=== PATIENT | female | born 1975 | race Caucasian/White ===

== ENCOUNTER 2018-12-18 14:19 | Observation (INO) ==
--- NOTE | 2018-12-18 15:34 | Progress Note ---
Subjective Date: 12/18/18 Time: 15:26 Principal diagnosis: chest pain Interval history: Office note from today: Pt here for follow up after ER visit. CAD is present. Hx of CABG. On ASA. PAD is present. She has been having chest pain about 10 times a day. It lasts around 5 minutes each time. It does radiate to her left arm. Sob with exertion. BP is acceptable today. Weight is up 1 pound LDL goal is < 55, LDL is 100. EKG is NSR, rate is 83 bpm. Due to her unstable angina would like to admit her to the hospital and get her set up for a LHC tomorrow. RTC after hospital stay. This document was scribed by me, Iliana Quinones RN for Dr. Jon Abreu MD Exam Vital signs and Labs for Last 24 Hours: Temp Pulse Resp BP Pulse Ox 97.5 F L 78 18 137/89 98 12/18/18 14:43 12/18/18 14:43 12/18/18 14:43 12/18/18 14:43 12/18/18 14:43 I & O for Last 24 hours: Intake & Output 12/16/18 12/17/18 12/18/18 12/19/18 11:59 11:59 11:59 11:59 Weight 175 lb 1 oz - *Routine Neck Exam Present: supple. Absent: JVD, carotid bruit - *Routine Respiratory Exam Present: CTA bilaterally. Absent: accessory muscle use, rales, rhonchi, wheezes - *Routine Cardiovascular Exam Present: RRR. Absent: murmur, gallop, rubs - *Routine Abdominal Exam Present: soft. Absent: tenderness, distended, guarding - *Routine Extremities Exam Absent: edema, calf tenderness - *Routine Neurological Exam Present: alert, oriented X3, moving all extremities Progress Note: A&P (1) Angina pectoris Status: Chronic Current Visit: No (2) Carotid artery stenosis Status: Chronic Current Visit: No (3) Coronary arteriosclerosis Status: Chronic Current Visit: No (4) History of coronary artery bypass graft Status: Chronic Current Visit: No (5) Hyperlipemia Status: Chronic Current Visit: No (6) Hypertensive heart disease Status: Chronic Current Visit: No (7) PAD (peripheral artery disease) Status: Chronic Current Visit: No (8) Peripheral arterial occlusive disease Status: Chronic Current Visit: No Assessment and Plan for All Diagnoses:: Admit for chest pain Plan for LHC in AM Continue home meds.
[2018-12-18 16:19] LABS: Basophils % 0.3 % (0.1-2.0); Eosinophils # 0.2 K/mm3 (0.0-0.4); Eosinophils % 1.6 % (0.1-12.0); Hematocrit 45.5 % (37.0-47.0); Lymphocytes # 2.5 K/mm3 (0.7-4.5); Lymphocytes % 26.9 % (10-50); Mean Corpuscular Hemoglobin 29.4 pg (27.0-31.2); Mean Corpuscular Volume 89.1 fl (81-99); Mean Platelet Volume 8.8 fl (7.4-10.4); Monocytes # 0.4 K/mm3 (0.1-1.0); Neutrophils # 6.3 K/mm3 (1.8-7.8); Neutrophils % 67.1 % (37.0-80.0); Platelet Count 196 K/mm3 (142-424); Red Cell Distribution Width 14.1 % (11.5-17.5); White Blood Count 9.4 K/mm3 (4.8-10.8)
[2018-12-18 16:27] LABS: Alanine Aminotransferase 21 U/L (12-78); Albumin Level 3.4 gm/dL (3.4-5.0); Albumin/Globulin Ratio 0.9 (1.1-1.8); Alkaline Phosphatase 78 U/L (46-116); Aspartate Amino Transferase 13 U/L (15-37); Blood Urea Nitrogen 8 mg/dL (7-18); Calcium 8.6 mg/dL (8.5-10.1); Carbon Dioxide 26 mmol/L (21.0-32.0); Chloride 106 mmol/L (98-107); Glucose 82 mg/dL (74-106); Sodium 141 mmol/L (136-145); Total Protein,Serum 7.4 gm/dL (6.4-8.2)
--- NOTE | 2018-12-18 20:32 | History & Physical Report ---
*Admission Date: 12/18/18 *Chief complaint: chest pain *History of present illness: this wf was seen in card clinic and noted to have ongoing multiple episodes - rdiology Clinic HPI Chief Complaint: Weight is up 1pd Here for ER visit f/u Patient states she went to the ER Tuesday for chest pain, she states her chest pain is still the same and the increase in imdur did not help. Occasional dizziness and lightheadedness SOB with chest pain Denies swelling and numbness Daytime fatigue and weakness are present Restless Sleep Occasional headaches here for follow up after ER visit. CAD is present. Hx of CABG. On ASA. PAD is present. She has been having chest pain about 10 times a day. It lasts around 5 minutes each time. It does radiate to her left arm. Sob with exertion. BP is acceptable today. Weight is up 1 pound LDL goal is < 55, LDL is 100. EKG is NSR, rate is 83 bpm. Due to her unstable angina would like to admit her to the hospital and get her set up for a [facility] tomorrow. pt admitted for [facility] and eval by [facility] History I have reviewed the patient's past medical history: Yes Medical History: Reports:: Asthma, Carotid Stenosis, Coronary Artery Disease, Gastroesophageal Reflux Disease(GERD), Hyperlipidemia, Hypertension, Myocardial Infarction Denies:: Cancer, Diabetes Mellitus Type 1, Diabetes Mellitus Type 2, MRSA *Have you ever received a pneumonia vaccine?: No *Have you received a flu vaccine this season?: Yes Other Medical History: Reports: Fibromyalgia Laterality Cases: Bilateral: Other Other Surgeries: Yes: Angioplasty, Cholecystectomy, , Hysterectomy- Total, Open Heart Surgery Amputation: No Fractures: No - *Social History Educational Level: Completed High School Smoking Status: Former smoker # Packs/Day (cigarettes): 1 Alcohol Intake: never Substance Use Type: denies use *Occupational Status:: disabled Housing: house Household Members: spouse *Travel in the last 8 weeks: None - Psychiatric History Expresses thoughts of harming self/others: None Suicide Plan Description: No Plan Family Hx:: Asthma, Cancer, Hyperlipidemia, Hypertension Review of Systems - Review of Systems Review of systems:: pertinent systems reviewed and negative unless documented below - Constitutional Denies fever(s) - Eyes Denies change in vision - ENT Denies dizziness - *Cardiovascular Reports chest pain, Reports shortness of breath, Reports radiating jaw, neck or arm pain - *Respiratory Denies cough - *Gastrointestinal Denies abdominal pain - *Genitourinary Denies abnormal periods - *Musculoskeletal Denies joint pain - Integumentary/Breasts Denies rash - *Neurologic Denies seizure-like activity - Psychiatric Denies anxiety Meds Home Medications Medication Instructions Recorded Confirmed Type albuterol sulfate HFA 90 2 puff INHALATION Q4-6H PRN 12/06/17 12/18/18 History mcg/actuation aerosol inhaler aspirin 81 mg tablet,delayed 81 mg PO DAILY tab 12/06/17 12/18/18 History release clopidogrel 75 mg tablet 75 mg PO DAILY tab 12/06/17 12/18/18 History famotidine 20 mg tablet 20 mg PO BID 12/06/17 12/18/18 History nitroglycerin 400 mcg/spray 1 spray TL Q5M PRN 12/06/17 12/18/18 History translingual ranolazine ER 500 mg 1,000 mg PO Q12H 12/06/17 12/18/18 History tablet,extended release,12 hr simvastatin 40 mg tablet 40 mg PO QAM 12/06/17 12/18/18 History Carvedilol [Carvedilol 25mg Tab] 37.5 mg PO BID 12/18/18 12/18/18 History Gabapentin [Neurontin 800mg Tab] 800 mg PO TID 12/18/18 12/18/18 History Isosorbide Mononitrate [Imdur 60mg 60 mg PO QAM 12/18/18 12/18/18 History ER tablet] Spironolactone [Spironolactone 25 mg PO QAM 12/18/18 12/18/18 History 25mg Tab] Torsemide [Demadex] 20 mg PO QAM 12/18/18 12/18/18 History Tramadol HCl [Tramadol 50mg 50 mg PO QID PRN 12/18/18 12/18/18 History Tab] Allergies Allergy/AdvReac Type Severity Reaction Status Date / Time latex Allergy Mild Rash Verified 12/18/18 13:44 naproxen Allergy Mild Rash Verified 12/18/18 13:44 Sulfa (Sulfonamide Allergy Mild Rash Verified 12/18/18 13:44 Antibiotics) Iodinated Contrast Media - AdvReac Intermediate Anaphylaxis Verified 12/18/18 13:44 Oral and Exam Vital signs and Labs for Last 24 Hours: Temp Pulse Resp BP Pulse Ox 97.9 F 77 16 119/71 97 12/18/18 19:53 12/18/18 19:53 12/18/18 19:53 12/18/18 19:53 12/18/18 20:16 Laboratory Results - last 24 hr 12/18/18 15:35: WBC 9.4, RBC 5.10, Hgb 15.0, Hct 45.5, MCV 89.1, MCH 29.4, MCHC 33.0, RDW 14.1, Plt Count 196, MPV 8.8, Neut % (Auto) 67.1, Lymph % (Auto) 26.9, [place] % (Auto) 4.0, Eos % (Auto) 1.6, Baso % (Auto) 0.3, Neut # (Auto) 6.3, Lymph # (Auto) 2.5, [place] # (Auto) 0.4, Eos # (Auto) 0.2, Baso # (Auto) 0.0 12/18/18 15:35: Sodium 141, Potassium 4.0, Chloride 106, Carbon Dioxide 26, Anion Gap 13.0, BUN 8, Creatinine 0.67, Estimated Creat Clear 139, Estimated GFR 97, Est GFR ( Amer) 117, Glucose 82, Calcium 8.6, Total Bilirubin 1.0, AST 13 L, ALT 21, Alkaline Phosphatase 78, Troponin I < 0.02, Total Protein 7.4, Albumin 3.4, Globulin 4.0 H, Albumin/Globulin Ratio 0.9 L 12/18/18 19:20: Troponin I < 0.02 I & O for Last 24 hours: Intake & Output 12/16/18 12/17/18 12/18/18 12/19/18 11:59 11:59 11:59 11:59 Intake Total 240 / 240 Balance 240 / 240 Weight 175 lb 1 oz - Constitutional no acute distress, obese - *Routine HEENT Exam Head: Present: normocephalic Eye: Present: EOMI, PERRL ENT: Present: mucous membranes dry - *Routine Neck Exam Absent: JVD - *Routine Respiratory Exam Present: CTA bilaterally - *Routine Cardiovascular Exam Present: RRR, murmur - *Routine Abdominal Exam Present: soft - *Routine Extremities Exam Present: full ROM. Absent: calf tenderness - *Routine Skin Exam Present: intact - *Routine Neurological Exam Present: alert, CN II-XII intact - Routine Psychiatric Exam Present: normal affect Assessment and Plan (1) Angina pectoris Current visit: No Status: Chronic Category: Medical Code(s): I20.9 - Angina pectoris, unspecified (2) Carotid artery stenosis Current visit: No Status: Chronic Qualifiers: Laterality: bilateral Qualified Code(s): I65.23 - Occlusion and stenosis of bilateral carotid arteries Category: Medical Code(s): I65.29 - Occlusion and stenosis of unspecified carotid artery (3) Coronary arteriosclerosis Current visit: No Status: Chronic Category: Medical Code(s): I25.10 - Atherosclerotic heart disease of [place] coronary artery without angina pectoris (4) History of coronary artery bypass graft Current visit: No Status: Chronic Category: Surgical Code(s): Z95.1 - Presence of aortocoronary bypass graft (5) Hyperlipemia Current visit: No Status: Chronic Qualifiers: Hyperlipidemia type: other hyperlipidemia Qualified Code(s): E78.49 - Other hyperlipidemia; E78.4 - Other hyperlipidemia Category: Medical Code(s): E78.5 - Hyperlipidemia, unspecified (6) Hypertensive heart disease Current visit: No Status: Chronic Qualifiers: Heart failure presence: without heart failure Qualified Code(s): I11.9 - Hypertensive heart disease without heart failure Category: Medical Code(s): I11.9 - Hypertensive heart disease without heart failure (7) PAD (peripheral artery disease) Current visit: No Status: Chronic Category: Medical Code(s): I73.9 - Peripheral vascular disease, unspecified (8) Peripheral arterial occlusive disease Current visit: No Status: Chronic Category: Medical Code(s): I77.9 - Diso rder of arteries and arterioles, unspecified (9) Obesity (BMI 30.0-34.9) Current visit: Yes Status: Acute Category: Medical Code(s): E66.9 - Obesity, unspecified
--- NOTE | 2018-12-19 07:52 | Pharmacy Consult Notes ---
[facility] Pharmacy VTE Monitoring - Patient Demographics Admission date: 12/19/18 Report Date: 12/19/18 Time: 07:52 Allergies/Adverse Reactions: Patient Allergies latex Allergy (Mild, Verified 12/18/18 13:44) Rash naproxen Allergy (Mild, Verified 12/18/18 13:44) Rash Sulfa (Sulfonamide Antibiotics) Allergy (Mild, Verified 12/18/18 13:44) Rash Iodinated Contrast Media - Oral and Adverse Reaction (Intermediate, Verified 12/18/18 13:44) Anaphylaxis Height: 1.63 m Weight: 79.407 kg Patient Problems: Current Active Problems Obesity (BMI 30.0-34.9) (Acute) - VTE Risk Labs: VTE Related Lab Results Hgb 15.0 g/dL (12.2-16.2) 12/18/18 15:35 Hct 45.5 % (37.0-47.0) 12/18/18 15:35 Plt Count 196 K/mm3 (142-424) 12/18/18 15:35 BUN 8 mg/dL (7-18) 12/18/18 15:35 Creatinine 0.67 mg/dL (0.55-1.02) 12/18/18 15:35 Estimated Creat Clear 139 mL/min (50-200) 12/18/18 15:35 Was VTE Risk Assessment Performed: Yes VTE Score: 1 Clinical Trial Participant: No - Prophylaxis VTE Prophylaxis Ordered?: Yes Types of VTE Prophylaxis: TEDS Knee High
--- NOTE | 2018-12-19 08:18 | Progress Note ---
Addendum entered and electronically signed by LIAM Dugan 12/19/18 14:10: Cardiac cath results noted. No need for intervention. Resume home meds. OK for discharge home from cardiology standpoint. Follow up in 1-2 wks. Original Note: Subjective Date: 12/19/18 Time: 08:09 Principal diagnosis: chest pain Interval history: 43-year-old white female in bed in no acute distress. Relates chest pain resolved after Nitropaste placed last evening. Patient does relate IV contrast allergy with shortness of breath and nausea in the past. We will pretreat for this allergy prior to the cath today. Exam Vital signs and Labs for Last 24 Hours: Temp Pulse Resp BP Pulse Ox 97.9 F 65 18 87/47 L 97 12/19/18 04:00 12/19/18 04:00 12/19/18 04:00 12/19/18 04:00 12/19/18 04:00 Laboratory Results - last 24 hr 12/18/18 15:35: WBC 9.4, RBC 5.10, Hgb 15.0, Hct 45.5, MCV 89.1, MCH 29.4, MCHC 33.0, RDW 14.1, Plt Count 196, MPV 8.8, Neut % (Auto) 67.1, Lymph % (Auto) 26.9, [place] % (Auto) 4.0, Eos % (Auto) 1.6, Baso % (Auto) 0.3, Neut # (Auto) 6.3, Lymph # (Auto) 2.5, [place] # (Auto) 0.4, Eos # (Auto) 0.2, Baso # (Auto) 0.0 12/18/18 15:35: Sodium 141, Potassium 4.0, Chloride 106, Carbon Dioxide 26, Anion Gap 13.0, BUN 8, Creatinine 0.67, Estimated Creat Clear 139, Estimated GFR 97, Est GFR ( Amer) 117, Glucose 82, Calcium 8.6, Total Bilirubin 1.0, AST 13 L, ALT 21, Alkaline Phosphatase 78, Troponin I < 0.02, Total Protein 7.4, Albumin 3.4, Globulin 4.0 H, Albumin/Globulin Ratio 0.9 L 12/18/18 19:20: Troponin I < 0.02 03/18/19 22:38: Troponin I < 0.02 I & O for Last 24 hours: Intake & Output 12/16/18 12/17/18 12/18/18 12/19/18 11:59 11:59 11:59 11:59 Intake Total 240 / 240 Balance 240 / 240 Weight 175 lb 1 oz - *Routine HEENT Exam Head: Present: normocephalic Eye: Present: EOMI, PERRL ENT: Present: mucous membranes moist - *Routine Respiratory Exam Present: CTA bilaterally. Absent: accessory muscle use, rales, rhonchi, wheezes - *Routine Cardiovascular Exam Present: RRR. Absent: murmur, gallop, rubs - *Routine Extremities Exam Absent: edema, calf tenderness - *Routine Neurological Exam Present: alert, oriented X3, moving all extremities Progress Note: A&P (1) Angina pectoris Status: Chronic Current Visit: No (2) Carotid artery stenosis Status: Chronic Current Visit: No (3) Coronary arteriosclerosis Status: Chronic Current Visit: No (4) History of coronary artery bypass graft Status: Chronic Current Visit: No (5) Hyperlipemia Status: Chronic Current Visit: No (6) Hypertensive heart disease Status: Chronic Current Visit: No (7) PAD (peripheral artery disease) Status: Chronic Current Visit: No (8) Peripheral arterial occlusive disease Status: Chronic Current Visit: No (9) Obesity (BMI 30.0-34.9) Status: Acute Current Visit: Yes Assessment and Plan for All Diagnoses:: 1. We will give IV contrast allergy pretreatment (Benadryl, zantac and IV solumedrol) 2. Proceed with cardiac cath today with further recommendations to follow
--- NOTE | 2018-12-19 14:39 | Discharge Summary ---
General - General Admission date:: 12/18/18 Discharge date: 12/19/18 HPI HPI: this wf was seen in card clinic and noted to have ongoing multiple episodes - rdiology Clinic HPI Chief Complaint: Weight is up 1pd Here for ER visit f/u Patient states she went to the ER Tuesday for chest pain, she states her chest pain is still the same and the increase in imdur did not help. Occasional dizziness and lightheadedness SOB with chest pain Denies swelling and numbness Daytime fatigue and weakness are present Restless Sleep Occasional headaches here for follow up after ER visit. CAD is present. Hx of CABG. On ASA. PAD is present. She has been having chest pain about 10 times a day. It lasts around 5 minutes each time. It does radiate to her left arm. Sob with exertion. BP is acceptable today. Weight is up 1 pound LDL goal is < 55, LDL is 100. EKG is NSR, rate is 83 bpm. Due to her unstable angina would like to admit her to the hospital and get her set up for a LHC tomorrow. pt admitted for [facility] and eval by [facility] Hospital Course Hospital Course: pt was admitted with chest pain and was seen by card -3-year-old white female in bed in no acute distress. Relates chest pain resolved after Nitropaste placed last evening. Patient does relate IV contrast allergy with shortness of breath and nausea in the past. We will pretreat for this allergy prior to the cath today. NGIOGRAPHIC RESULTS: 1. The left main artery normal 2. The left anterior descending artery has an ostial to proximal 50% long stenosis followed by an additional concentric proximal 70% stenosis. Competitive flow from the right internal mammary artery is identified 3. The circumflex artery is a large vessel with 2 obtuse marginal arteries and angiographically normal 4. The right coronary artery is a dominant vessel and normal 5. The KAYE ventriculogram reveals normal 65% 6. The left ventricular end-diastolic pressure 20 mmHg 7. The right internal mammary artery iswidely patent to the mid LAD 8. The left common carotid artery is widely patent as is the left proximal internal carotid artery 9. The graft going from the left carotid artery to the left subclavian artery is occluded 10. The left subclavian artery is ostially occluded 11. Transverse aortography demonstrates the innominate artery is widely patent as is the left common carotid artery. The left subclavian artery is occluded. There are collaterals which originates off the aorta which provides blood to the left subclavian artery and subsequently left arm IMPRESSION: 1. Coronary artery disease as described above 2. Patent ZAKI to the mid LAD 3. Normal ejection fraction 4. Mildly elevated LVEDP 5. Interval occlusion of the bypass graft going from the left carotid artery to the left subclavian artery 6. Interval development of collaterals supplying the left subclavian artery pt was d/c to see card as op Objective Vital signs: Temp Pulse Resp BP Pulse Ox 98.2 F 63 18 109/57 L 89 L 12/19/18 11:36 12/19/18 13:35 12/19/18 13:35 12/19/18 13:35 12/19/18 13:35 no acute distress, obese - *Routine HEENT Exam Head: Present: normocephalic Eye: Present: EOMI, PERRL ENT: Present: mucous membranes moist - *Routine Neck Exam Present: supple. Absent: JVD - *Routine Respiratory Exam Present: CTA bilaterally - *Routine Cardiovascular Exam Present: RRR, murmur - *Routine Abdominal Exam Present: soft - *Routine Extremities Exam Absent: calf tenderness - *Routine Skin Exam Present: intact - *Routine Neurological Exam Present: alert, oriented X3, CN II-XII intact - Routine Psychiatric Exam Present: normal affect Results Labs on day of discharge: Labs from last 24 hours 12/18/18 12/18/18 12/18/18 22:38 19:20 15:35 WBC RBC Hgb Hct MCV MCH MCHC RDW Plt Count MPV Neut % (Auto) Lymph % (Auto) [place] % (Auto) Eos % (Auto) Baso % (Auto) Neut # (Auto) Lymph # (Auto) [place] # (Auto) Eos # (Auto) Baso # (Auto) Sodium 141 Potassium 4.0 Chloride 106 Carbon Dioxide 26 Anion Gap 13.0 BUN 8 Creatinine 0.67 Estimated Creat Clear 139 Estimated GFR 97 Est GFR ( Amer) 117 Glucose 82 Calcium 8.6 Total Bilirubin 1.0 AST 13 L ALT 21 Alkaline Phosphatase 78 Troponin I < 0.02 < 0.02 < 0.02 Total Protein 7.4 Albumin 3.4 Globulin 4.0 H Albumin/Globulin Ratio 0.9 L 12/18/18 15:35 WBC 9.4 RBC 5.10 Hgb 15.0 Hct 45.5 MCV 89.1 MCH 29.4 MCHC 33.0 RDW 14.1 Plt Count 196 MPV 8.8 Neut % (Auto) 67.1 Lymph % (Auto) 26.9 [place] % (Auto) 4.0 Eos % (Auto) 1.6 Baso % (Auto) 0.3 Neut # (Auto) 6.3 Lymph # (Auto) 2.5 [place] # (Auto) 0.4 Eos # (Auto) 0.2 Baso # (Auto) 0.0 Sodium Potassium Chloride Carbon Dioxide Anion Gap BUN Creatinine Estimated Creat Clear Estimated GFR Est GFR ( Amer) Glucose Calcium Total Bilirubin AST ALT Alkaline Phosphatase Troponin I Total Protein Albumin Globulin Albumin/Globulin Ratio DS: Diagnosis - Discharge Diagnosis (1) Angina pectoris Status: Chronic (2) Carotid artery stenosis Status: Chronic (3) Coronary arteriosclerosis Status: Chronic (4) History of coronary artery bypass graft Status: Chronic (5) Hyperlipemia Status: Chronic (6) Hypertensive heart disease Status: Chronic (7) PAD (peripheral artery disease) Status: Chronic (8) Peripheral arterial occlusive disease Status: Chronic (9) Obesity (BMI 30.0-34.9) Status: Acute Discharge Plan - Patient Discharge Instructions ACTIVITY: Continue current activity DIET: continue same diet Patient Instructions: DI for Angina - Follow up Plan Disposition: Home, Self-Alf Medications: Home Medications Medication Instructions Recorded Confirmed Type albuterol sulfate HFA 90 2 puff INHALATION Q4-6H PRN 12/06/17 12/18/18 History mcg/actuation aerosol inhaler aspirin 81 mg tablet,delayed 81 mg PO DAILY tab 12/06/17 12/18/18 History release clopidogrel 75 mg tablet 75 mg PO DAILY tab 12/06/17 12/18/18 History famotidine 20 mg tablet 20 mg PO BID 12/06/17 12/18/18 History nitroglycerin 400 mcg/spray 1 spray TL Q5M PRN 12/06/17 12/18/18 History translingual ranolazine ER 500 mg 1,000 mg PO Q12H 12/06/17 12/18/18 History tablet,extended release,12 hr simvastatin 40 mg tablet 40 mg PO DAILY 12/06/17 12/19/18 History Carvedilol [Carvedilol 25mg Tab] 37.5 mg PO BID 12/18/18 12/18/18 History Gabapentin [Neurontin 800mg Tab] 800 mg PO TID 12/18/18 12/18/18 History Isosorbide Mononitrate [Imdur 60mg 60 mg PO DAILY 12/18/18 12/19/18 History ER tablet] Torsemide [Demadex] 20 mg PO DAILY 12/18/18 12/19/18 History Tramadol HCl [Tramadol 50mg 50 mg PO QIDP PRN 12/18/18 12/19/18 History Tab] Spironolactone 25 mg PO DAILY 12/19/18 12/19/18 History Prescriptions/Medication Reconciliation: New Aspirin [Aspirin 81mg chewable tab] 81 mg PO DAILY tab.chew Carvedilol [Coreg 25mg Tablet] 37.5 mg PO BID tablet Famotidine [Pepcid 20mg Tablet] 20 mg PO HS tablet Isosorbide Mononitrate [Imdur 60mg ER tablet] 60 mg PO DAILY tab.er.24h Pravastatin Sodium [Pravachol 40mg Tablet] 40 mg PO HS tablet Ranolazine [Ranexa 500mg ER tablet] 1,000 mg PO BID tab.er.12h Torsemide [Demadex 20mg tablet] 20 mg PO DAILY tablet Tramadol HCl [Ultram 50mg tablet] 50 mg PO Q6HP PRN tablet PRN Reason: Breakthru Moderate Pain Clopidogrel Bisulfate [Plavix 75mg Tab] 75 mg PO DAILY tablet Continue albuterol sulfate HFA 90 mcg/actuation aerosol inhaler 2 puff INHALATION Q4- 6H PRN PRN Reason: breathing aspirin 81 mg tablet,delayed release 81 mg PO DAILY tab clopidogrel 75 mg tablet 75 mg PO DAILY tab nitroglycerin 400 mcg/spray translingual 1 spray TL Q5M PRN PRN Reason: Chest Pain famotidine 20 mg tablet 20 mg PO BID ranolazine ER 500 mg tablet,extended release,12 hr 1,000 mg PO Q12H simvastatin 40 mg tablet 40 mg PO DAILY Torsemide [Demadex] 20 mg PO DAILY Isosorbide Mononitrate [Imdur 60mg ER tablet] 60 mg PO DAILY Tramadol HCl [Tramadol 50mg Tab] 50 mg PO QIDP PRN PRN Reason: pain Spironolactone 25 mg PO DAILY Gabapentin [Neurontin 800mg Tab] 800 mg PO TID Carvedilol [Carvedilol 25mg Tab] 37.5 mg PO BID
== END 2018-12-19 16:40 | disposition home or self-care (01) ==
LOC: 2ND
PROVIDERS: ADMIT Emergency Medicine; ATTEND Emergency Medicine
CPT/HCPCS: 36223; 36225; 36415; 80053; 84484; 85025; 93459; 99152; C1725; C1769; C1894; G0378; J1644; Q9967